=== PATIENT | female | born 1960 | race Caucasian/White ===

== ENCOUNTER 2018-03-16 09:23 | Inpatient (IN) | payer MEDICAID, OTHER ==
[~2018-03-16] VITALS: Ht 167.6 cm; Wt 85.7 kg
[2018-03-16] MEDS ORDERED: ASPirin 81 mg TAB PO ONE (10:00)
[2018-03-16 10:12] LABS: Basophils # (auto) 0.1 uL; Basophils % (auto) 0.8 % (0.0-2.0); Eosinophils # (auto) 0.1 uL; Eosinophils % (auto) 1.1 % (0.0-7.0); Hematocrit 40.9 % (36.0-46.0); Hemoglobin 13.5 g/dL (12.2-16.2); Lymphocytes # (auto) 2.2 uL; Lymphocytes % (auto) 36.4 % (10.0-50.0); Mean Corpuscular Hemoglobin 29.4 pg (28.0-32.0); Mean Corpuscular Volume 89.2 fL (80.0-100.0); Monocytes # (auto) 0.5 uL; Monocytes % (auto) 7.6 % (0.0-12.0); Neutrophils # (auto) 3.3 uL; Neutrophils % (auto) 54.1 % (37.0-80.0); Nucleated Red Blood Cells % 0.1 %; Platelet Count (auto) 249 10^3/uL (140-450); Red Blood Cells 4.59 10^6/uL (4.0-5.20); Red Cell Distribution Width 14.3 % (11.8-14.3); White Blood Cell 6.2 10^3/uL (4.4-10.8)
[2018-03-16 10:23] LABS: BUN/Creatinine Ratio 22.4; Calcium 8.9 mg/dL (8.5-10.1); Potassium 3.6 mmol/L (3.5-5.1)
[2018-03-16 10:32] LABS: Bilirubin, Total 0.4 mg/dL (0.2-1.0); Total Protein 7.9 g/dL (6.4-8.2)
[2018-03-16 10:57] LABS: Urine Bacteria NONE SEEN /hpf (None Seen); Urine Blood TRACE /uL (Negative); Urine WBC <1 /hpf (0 - 5)
[2018-03-16] MEDS ORDERED: TEMAZEPAM 15 MG CAP PO PRN (11:15)
[2018-03-16] MEDS ORDERED: traMADol HCL 50 MG TAB PO PRN (11:15)
[2018-03-16] MEDS ORDERED: MORPHINE SULF INJ 2 MG/ML SYRINGE 1ML IV PRN (11:15)
[2018-03-16] MEDS ORDERED: KETOROLAC TROMETH 30 MG/ML 1ML VIAL IV PRN (11:15)
[2018-03-16] MEDS ORDERED: NITROGLYCERIN 0.4 MG SL TAB SL PRN (11:15)
[2018-03-16] MEDS ORDERED: NITROFURANTOIN (MONO) 100 mg CAP PO ONE (11:15)
[2018-03-16] MEDS: SODIUM CHLORIDE 0.9% 1,000 ML IV SCH (11:35)
[2018-03-16] MEDS ORDERED: LORazepam 2MG/ML-1ML VIAL IV ONE (11:45)
[2018-03-16] MEDS ORDERED: DOXYCYCLINE 100 MG TAB/CAP PO ONE (11:45)
[2018-03-16 12:26] LABS: Alcohol, Urine < 3.0 mg/dL (0-5); Amphetamine Screen, Urine NEGATIVE (NEGATIVE); Barbiturate Scree,Urine NEGATIVE (NEGATIVE); Benzodiazephine Screen, Urine NEGATIVE (NEGATIVE); Cannabinoid Screen, Urine NEGATIVE (NEGATIVE); Cocaine Screen, Urine NEGATIVE (NEGATIVE); Opiate Scree,Urine NEGATIVE (NEGATIVE); Phencyclidine Screen, Urine NEGATIVE (NEGATIVE)
[2018-03-16 18:06] VITALS: BP 151/90
[2018-03-16] MEDS: NITROFURANTOIN (MONO) 100 mg CAP PO SCH (21:36)
[2018-03-16] MEDS: ATORVASTATIN 20 MG TAB PO SCH (21:36)
[2018-03-16] MEDS: DOXYCYCLINE 100 MG TAB/CAP PO SCH (21:36)
[2018-03-16 22:00] VITALS: BP 138/85
[2018-03-17] MEDS: SODIUM CHLORIDE 0.9% 1,000 ML IV SCH ×2 (03:48→21:09)
[2018-03-17 05:00] VITALS: BP 127/86
[2018-03-17 05:55] LABS: Cholesterol 199 mg/dL (< 200); HDL Cholesterol 41 mg/dL (40-59); LDL Cholesterol 142 mg/dL (< 100); Triglycerides 94 mg/dL (< 150)
[2018-03-17 09:00] VITALS: BP 129/87
[2018-03-17] MEDS: NITROGLYCERIN 0.2MG/HR TOPICAL PATCH TD SCH (10:00)
[2018-03-17] MEDS: ENOXAPARIN SOD 40 MG/0.4 ML SYRINGE SC SCH (10:00)
[2018-03-17] MEDS: PANTOPRAZOLE 40 MG TAB PO SCH (10:48)
[2018-03-17] MEDS: ASPirin 81 mg TAB PO SCH (10:48)
[2018-03-17] MEDS: NITROFURANTOIN (MONO) 100 mg CAP PO SCH ×2 (10:48→21:08)
[2018-03-17] MEDS: DOXYCYCLINE 100 MG TAB/CAP PO SCH ×2 (10:48→21:08)
[2018-03-17 13:00] VITALS: BP 151/86
[2018-03-17 17:00] VITALS: BP 144/94
[2018-03-17] MEDS ORDERED: IOHEXOL 350 MG/ML 100ML IJ ONE (18:08)
[2018-03-17] MEDS: ATORVASTATIN 20 MG TAB PO SCH (21:08)
[2018-03-17 22:00] VITALS: BP 146/87
[2018-03-17] MEDS: PROMETHAZINE HCL 25 MG/ML 1ML IV PRN (22:26)
[2018-03-18 05:00] VITALS: BP 124/83
[2018-03-18] MEDS: SODIUM CHLORIDE 0.9% 1,000 ML IV SCH ×2 (05:56→21:40)
[2018-03-18 09:01] VITALS: BP 108/70
[2018-03-18] MEDS: NITROGLYCERIN 0.2MG/HR TOPICAL PATCH TD SCH (10:00)
[2018-03-18] MEDS: ENOXAPARIN SOD 40 MG/0.4 ML SYRINGE SC SCH (10:00)
[2018-03-18] MEDS: DOXYCYCLINE 100 MG TAB/CAP PO SCH ×2 (10:22→21:39)
[2018-03-18] MEDS: ASPirin 81 mg TAB PO SCH (10:22)
[2018-03-18] MEDS: PANTOPRAZOLE 40 MG TAB PO SCH (10:22)
[2018-03-18] MEDS: NITROFURANTOIN (MONO) 100 mg CAP PO SCH ×2 (10:23→21:39)
[2018-03-18 12:57] VITALS: BP 115/76
[2018-03-18] MEDS: ATORVASTATIN 20 MG TAB PO SCH (21:39)
[2018-03-18 22:00] VITALS: BP 117/80
[2018-03-19] MEDS: ACETAMINOPHEN 500 MG TAB PO PRN ×2 (04:17→10:30)
[2018-03-19 05:00] VITALS: BP 128/84
[2018-03-19] MEDS: SODIUM CHLORIDE 0.9% 1,000 ML IV SCH ×2 (07:45→21:38)
[2018-03-19] MEDS ORDERED: ADENOSINE 73 MG in GIVE UN-DILUTED 0 ML IV STA (08:29)
[2018-03-19 09:00] VITALS: BP 121/84
[2018-03-19] MEDS: NITROGLYCERIN 0.2MG/HR TOPICAL PATCH TD SCH (10:00)
[2018-03-19] MEDS: DOXYCYCLINE 100 MG TAB/CAP PO SCH ×2 (10:20→21:36)
[2018-03-19] MEDS: ASPirin 81 mg TAB PO SCH (10:20)
[2018-03-19] MEDS: PANTOPRAZOLE 40 MG TAB PO SCH (10:21)
[2018-03-19] MEDS: ENOXAPARIN SOD 40 MG/0.4 ML SYRINGE SC SCH (10:21)
[2018-03-19] MEDS: NITROFURANTOIN (MONO) 100 mg CAP PO SCH ×2 (10:21→21:36)
[2018-03-19] MEDS: PROMETHAZINE HCL 25 MG/ML 1ML IV PRN (12:30)
[2018-03-19] MEDS ORDERED: methylPREDNISolone SOD SUCC 125 MG/2 ML VL IV ONE (12:30)
[2018-03-19 13:00] VITALS: BP 133/91
[2018-03-19 17:00] VITALS: BP 123/84
[2018-03-19] MEDS: ATORVASTATIN 20 MG TAB PO SCH (21:36)
[2018-03-19 22:00] VITALS: BP 139/86
[2018-03-20 05:00] VITALS: BP 115/83
[2018-03-20 08:25] VITALS: BP 137/85
[2018-03-20] MEDS: SODIUM CHLORIDE 0.9% 1,000 ML IV SCH ×2 (08:28→21:50)
[2018-03-20 09:00] VITALS: BP 128/87
[2018-03-20] MEDS: ENOXAPARIN SOD 40 MG/0.4 ML SYRINGE SC SCH (10:00)
[2018-03-20] MEDS: NITROGLYCERIN 0.2MG/HR TOPICAL PATCH TD SCH (10:00)
[2018-03-20] MEDS: NITROFURANTOIN (MONO) 100 mg CAP PO SCH ×2 (11:20→21:50)
[2018-03-20] MEDS: ASPirin 81 mg TAB PO SCH (11:20)
[2018-03-20] MEDS: DOXYCYCLINE 100 MG TAB/CAP PO SCH ×2 (11:20→21:50)
[2018-03-20] MEDS: methylPREDNISolone SOD SUCC 125 MG/2 ML VL IV SCH (11:21)
[2018-03-20] MEDS: PANTOPRAZOLE 40 MG TAB PO SCH (11:23)
[2018-03-20 13:00] VITALS: BP 148/77
[2018-03-20 16:54] VITALS: BP 127/89
[2018-03-20] MEDS: ATORVASTATIN 20 MG TAB PO SCH (21:50)
[2018-03-20 22:00] VITALS: BP 149/97
[2018-03-21 05:00] VITALS: BP 141/90
[2018-03-21] MEDS: LORazepam 0.5 MG TAB PO PRN ×2 (05:00→12:40)
[2018-03-21 06:27] LABS: Basophils # (auto) 0 uL; Basophils % (auto) 0.1 % (0.0-2.0); Eosinophils # (auto) 0 uL; Hematocrit 39.5 % (36.0-46.0); Lymphocytes # (auto) 1.1 uL; Lymphocytes % (auto) 6.6 % (10.0-50.0); Mean Corpuscular Hemoglobin 29.4 pg (28.0-32.0); Mean Corpuscular Volume 89.3 fL (80.0-100.0); Monocytes # (auto) 0.6 uL; Monocytes % (auto) 3.3 % (0.0-12.0); Platelet Count (auto) 248 10^3/uL (140-450); Red Blood Cells 4.43 10^6/uL (4.0-5.20); Red Cell Distribution Width 14.5 % (11.8-14.3); White Blood Cell 16.7 10^3/uL (4.4-10.8)
[2018-03-21 06:41] LABS: BUN/Creatinine Ratio 18.5; Calcium 8.9 mg/dL (8.5-10.1); Potassium 3.6 mmol/L (3.5-5.1)
[2018-03-21 09:00] VITALS: BP 149/92
[2018-03-21] MEDS: PANTOPRAZOLE 40 MG TAB PO SCH (10:07)
[2018-03-21] MEDS: methylPREDNISolone SOD SUCC 125 MG/2 ML VL IV SCH (10:07)
[2018-03-21] MEDS: ASPirin 81 mg TAB PO SCH (10:08)
[2018-03-21] MEDS: DOXYCYCLINE 100 MG TAB/CAP PO SCH ×2 (10:08→21:36)
[2018-03-21] MEDS: NITROFURANTOIN (MONO) 100 mg CAP PO SCH ×2 (10:08→21:36)
[2018-03-21] MEDS: NITROGLYCERIN 0.2MG/HR TOPICAL PATCH TD SCH (10:15)
[2018-03-21] MEDS: PROMETHAZINE HCL 25 MG/ML 1ML IV PRN (12:40)
[2018-03-21 13:00] VITALS: BP 159/91
[2018-03-21] MEDS ORDERED: IODIXANOL 320MG/ML 100ML BTL IV ONE (13:56)
[2018-03-21] MEDS ORDERED: LIDOCAINE 2%HCL (LOCAL ANESTH.) INJ 10ml MDV ONE (13:56)
[2018-03-21] MEDS ORDERED: ANGIOMAX 250 MG VIAL IV ONE ×2 (14:01→14:41)
[2018-03-21] MEDS ORDERED: SODIUM CHL 0.9% 50 ML ONE ×2 (14:02→14:41)
[2018-03-21] MEDS ORDERED: fentaNYL CITRATE 100 MCG/2 ML VL ONE (14:02)
[2018-03-21] MEDS ORDERED: MIDAZOLAM HCL 1MG/1ML-2 ML VIAL ONE (14:02)
[2018-03-21] MEDS: SODIUM CHLORIDE 0.9% 1,000 ML IV SCH (14:46)
[2018-03-21 16:51] VITALS: BP 125/74
[2018-03-21] MEDS: ATORVASTATIN 20 MG TAB PO SCH (21:36)
[2018-03-21 22:12] VITALS: BP 140/88
[2018-03-22] MEDS: SODIUM CHLORIDE 0.9% 1,000 ML IV SCH ×2 (00:36→14:00)
[2018-03-22 05:30] VITALS: BP 129/77
[2018-03-22] MEDS: ACETAMINOPHEN 500 MG TAB PO PRN (05:44)
[2018-03-22 06:56] LABS: Basophils # (auto) 0 uL; Eosinophils # (auto) 0 uL; Hematocrit 38.8 % (36.0-46.0); Lymphocytes # (auto) 1.6 uL; Lymphocytes % (auto) 10.9 % (10.0-50.0); Mean Corpuscular Hemoglobin 29.9 pg (28.0-32.0); Mean Corpuscular Hgb Conc. 33.4 g/dL (32.0-36.0); Mean Corpuscular Volume 89.5 fL (80.0-100.0); Monocytes # (auto) 0.6 uL; Monocytes % (auto) 4.1 % (0.0-12.0); Neutrophils # (auto) 12.2 uL; Nucleated Red Blood Cells % 0.1 %; Platelet Count (auto) 242 10^3/uL (140-450); Red Blood Cells 4.34 10^6/uL (4.0-5.20); Red Cell Distribution Width 14.5 % (11.8-14.3); White Blood Cell 14.4 10^3/uL (4.4-10.8)
[2018-03-22 07:37] LABS: Albumin 3.5 g/dL (3.4-5.0); Calcium 8.8 mg/dL (8.5-10.1); Potassium 3.8 mmol/L (3.5-5.1)
[2018-03-22 07:39] LABS: Bilirubin, Total 0.3 mg/dL (0.2-1.0); Total Protein 7.1 g/dL (6.4-8.2)
[2018-03-22 09:00] VITALS: BP 129/85
[2018-03-22] MEDS: ASPirin 81 mg TAB PO SCH (09:50)
[2018-03-22] MEDS: methylPREDNISolone SOD SUCC 125 MG/2 ML VL IV SCH (09:50)
[2018-03-22] MEDS: DOXYCYCLINE 100 MG TAB/CAP PO SCH (09:51)
[2018-03-22] MEDS: PANTOPRAZOLE 40 MG TAB PO SCH (09:51)
[2018-03-22] MEDS: NITROFURANTOIN (MONO) 100 mg CAP PO SCH (09:51)
[2018-03-22] MEDS: NITROGLYCERIN 0.2MG/HR TOPICAL PATCH TD SCH (09:51)
[2018-03-22] MEDS ORDERED: ENOXAPARIN SOD 40 MG/0.4 ML SYRINGE SC SCH (10:00)
[2018-03-22 11:59] VITALS: BP 129/85
== END 2018-03-22 13:20 | disposition home or self-care (01) | DRG 287 ==
LOC: ER 09:23 → TELE 09:24 → TELE-WESTW 17:50
PROVIDERS: ADMIT Internal Medicine; ATTEND Family Medicine
PROC: 4A023N7 Measurement of Cardiac Sampling and Pressure, Left Heart, Percutaneous Approach (ICD-10-PCS; principal; 2018-03-21)
PROC: B2111ZZ Fluoroscopy of Multiple Coronary Arteries using Low Osmolar Contrast (ICD-10-PCS; 2018-03-21)
PROC: B2151ZZ Fluoroscopy of Left Heart using Low Osmolar Contrast (ICD-10-PCS; 2018-03-21)
DX: R07.89 Other chest pain (principal); I24.9 Acute ischemic heart disease, unspecified; N39.0 Urinary tract infection, site not specified; I10 Essential (primary) hypertension; E78.00 Pure hypercholesterolemia, unspecified; J20.9 Acute bronchitis, unspecified; M48.02 Spinal stenosis, cervical region; I77.810 Thoracic aortic ectasia; R59.0 Localized enlarged lymph nodes; G43.909 Migraine, unspecified, not intractable, without status migrainosus; M54.12 Radiculopathy, cervical region; Z80.0 Family history of malignant neoplasm of digestive organs; Z82.49 Family history of ischemic heart disease and other diseases of the circulatory system; Z90.710 Acquired absence of both cervix and uterus; Z88.1 Allergy status to other antibiotic agents; Z88.0 Allergy status to penicillin
CPT/HCPCS: 36415; 70450; 70551; 71046; 71275; 72141; 78452; 80048; 80053; 80061; 80307; 81001; 82550; 84443; 84484; 85025; 85379; 85652; 86141; 86850; 86900; 86901; 87086; 93005; 93017; 93306; 93458; 94761; 99152; A6257; J0153; J1885; J2001; J2250; Q9967

== ENCOUNTER → 2018-04-11 | Outpatient (CLI) | payer MEDICAID ==
[2018-04-11 11:25] LABS: Albumin 3.7 g/dL (3.4-5.0); Bilirubin, Direct 0.1 mg/dL (0-0.2); Bilirubin, Total 0.8 mg/dL (0.2-1.0); Total Protein 7.2 g/dL (6.4-8.2)
== END | disposition home or self-care (01) ==
LOC: LAB 10:32
PROVIDERS: ATTEND Internal Medicine
DX: E78.5 Hyperlipidemia, unspecified (principal); Z88.0 Allergy status to penicillin
CPT/HCPCS: 36415; 80076

== ENCOUNTER → 2018-04-19 | Outpatient (CLI) | payer MEDICAID | END | disposition home or self-care (01) | LOC: Rad HDHVI 11:24 | PROVIDERS: ATTEND Internal Medicine | DX: M54.5 Low back pain (principal); Z90.710 Acquired absence of both cervix and uterus; Z88.0 Allergy status to penicillin; Z88.8 Allergy status to other drugs, medicaments and biological substances; Z79.899 Other long term (current) drug therapy | CPT/HCPCS: 72100 ==

== ENCOUNTER → 2019-01-11 | Outpatient (CLI) | payer MEDICAID ==
[~2019-01-11] MED LIST: IOHEXOL 350 MG/ML 100ML IJ ONE
--- NOTE | 2019-01-11 10:34 | NUR ---
PT. TO CLINIC FOR CTA OF AORTA PER MD ORDER. AOX3, PWD. ORDERS RECEIVED AND CARRIED OUT.
[2019-01-11 10:40] VITALS: BP 113/81
--- NOTE | 2019-01-11 10:40 | NUR ---
IV insertion IV access obtained, via clean sterile technique by inserting 18 gauge catheter at after attempt(s). IV secured properly. No trauma to site. Patient tolerated procedure well. STAT LABS SENT.
--- NOTE | 2019-01-11 11:50 | NUR ---
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 Saran flushed , site benign. DC'd stable.
--- NOTE | 2019-01-11 12:40 | NUR ---
PT. RTC FOR CTA WITH [facility]. HL FLUSHED. LABS WNL. TECH ADVISED. DELAY IN TX D/T LABS AND TECH AVAILABILITY. REASURRANCE GIVEN TO PT.
--- NOTE | 2019-01-11 13:15 | NUR ---
PT. TO AND FROM CT, TOLERATED PROCEDURE WELL, WITH NO C/O.
[2019-01-11 13:30] VITALS: BP 118/76
--- NOTE | 2019-01-11 13:30 | NUR ---
IV removal IV DC'd with sterile technique, catheter fully intact. Pressure dressing applied to site. Patient tolerated procedure well. Discharged with aftercare instructions per MD. NOTE: PT. GIVEN WRITTEN INSTRUCTIONS TO HOLD METFORMIN FOR NEXT 24 HRS, AND INCREASE FLUID INTAKE FOR NEXT 24 HRS.
== END | disposition home or self-care (01) ==
LOC: Rad HDHVI 10:04
PROVIDERS: ATTEND Internal Medicine
DX: I71.4 Abdominal aortic aneurysm, without rupture (principal); E11.9 Type 2 diabetes mellitus without complications; R94.4 Abnormal results of kidney function studies; I70.0 Atherosclerosis of aorta; J98.11 Atelectasis; K44.9 Diaphragmatic hernia without obstruction or gangrene; K42.9 Umbilical hernia without obstruction or gangrene; Z90.710 Acquired absence of both cervix and uterus
CPT/HCPCS: 36415; 74175; 82565; G0463; Q9967

== ENCOUNTER → 2019-01-21 | Outpatient (CLI) | payer MEDICAID ==
[2019-01-21 09:00] VITALS: BP 107/75
--- NOTE | 2019-01-21 09:00 | NUR ---
CHF/CT PT ARRIVED AT THE [facility] FOR CT OF THE CHEST IV STARTED CURRENT CREA 0.86
[2019-01-21 09:44] VITALS: BP 111/76
== END | disposition home or self-care (01) ==
LOC: Rad HDHVI 08:49
PROVIDERS: ATTEND Internal Medicine
DX: K44.9 Diaphragmatic hernia without obstruction or gangrene (principal); R94.4 Abnormal results of kidney function studies; R22.1 Localized swelling, mass and lump, neck; I77.819 Aortic ectasia, unspecified site
CPT/HCPCS: 36415; 71250; 71275; 82565; G0463; Q9967

== ENCOUNTER → 2019-10-11 | Outpatient (CLI) | payer MEDICAID | END | disposition home or self-care (01) | LOC: Rad HDHVI 13:40 | PROVIDERS: ATTEND Internal Medicine | DX: I08.8 Other rheumatic multiple valve diseases (principal); I10 Essential (primary) hypertension; I77.810 Thoracic aortic ectasia | CPT/HCPCS: 93306 ==

== ENCOUNTER → 2019-10-21 | Outpatient (CLI) | payer MEDICAID ==
[~2019-10-21] VITALS: Ht 167.6 cm; Wt 88.5 kg
== END | disposition home or self-care (01) ==
LOC: Rad HDHVI 09:05
PROVIDERS: ATTEND Internal Medicine
DX: I10 Essential (primary) hypertension (principal); R07.9 Chest pain, unspecified; E78.00 Pure hypercholesterolemia, unspecified; E11.9 Type 2 diabetes mellitus without complications; Z82.49 Family history of ischemic heart disease and other diseases of the circulatory system
CPT/HCPCS: 78452; 93017; 96374; A9500

== ENCOUNTER → 2021-07-21 | Day surgery (SDC) | payer MEDICAID ==
[2021-07-19 12:12] LABS: Basophils # (auto) 0 10 ^3/uL (0-0.2); Basophils % (auto) 0.4 % (0.0-2.0); Eosinophils # (auto) 0.1 10 ^3/uL (0-0.8); Eosinophils % (auto) 1.5 % (0.0-7.0); Hematocrit 37.9 % (36.0-46.0); Hemoglobin 12.9 g/dL (12.2-16.2); Lymphocytes # (auto) 2.2 10 ^3/uL (0.4-5.4); Lymphocytes % (auto) 27.3 % (10.0-50.0); Mean Corpuscular Hemoglobin 30.1 pg (28.0-32.0); Mean Corpuscular Volume 88.3 fL (80.0-100.0); Monocytes # (auto) 0.6 10 ^3/uL (0-1.3); Neutrophils % (auto) 62.8 % (37.0-80.0); Red Blood Cells 4.29 10^6/uL (4.0-5.20); Red Cell Distribution Width 15.2 % (11.8-14.3)
[2021-07-19 12:25] LABS: Urine Bacteria NONE SEEN /hpf (None Seen); Urine Blood Negative /uL (Negative); Urine Specific Gravity 1.007 (1.001-1.035); Urine WBC <1 /hpf (0 - 5)
[2021-07-19 12:30] LABS: Albumin 3.7 g/dL (3.4-5.0); Calcium 8.8 mg/dL (8.5-10.1); Potassium 3.8 mmol/L (3.5-5.1)
[2021-07-19 12:33] LABS: BUN/Creatinine Ratio 12.5; Bilirubin, Total 0.6 mg/dL (0.2-1.0); Total Protein 7.4 g/dL (6.4-8.2)
[~2021-07-21] MED LIST changes: +AMLO-489 PO; +ASPI-498 PO; +ATOR20TA50 PO; +BENZ100C97 PO; +BUPIVACAINE 0.5% P/F INJ 10 ML VIAL ONE; +BUPIVACAINE W/ EPINEPH 0.5% MPF 30ML VIAL IJ ONE; +DexAMETHasone SOD PHOS 10MG/1ML VIAL INJ ONE; +GELATIN 1 SPONGE SIZE 100 TOP ONE; +GELATIN 1 SPONGE SIZE 50 TOP ONE; +HYDR25TA4 PO; +HYDROmorphone HCL 2 MG/ML VL ONE; -IOHEXOL 350 MG/ML 100ML IJ ONE; +LABETALOL HCL 5 MG/ML 4ML SYRINGE IV PRN; +LIDOCAINE 2% JELLY 11ml (GLYDO) ONE; +MET50T GT; +METF-370 PO; +MIDAZOLAM HCL 2MG/2ML 2ml VIAL (1mg/ml) IV PRN; +MIDAZOLAM HCL 2MG/2ML 2ml VIAL (1mg/ml) ONE; +MONT-8 OR; +MORPHINE SULFATE 4 MG/ML SYR/VIAL IV PRN; +ONDANSETRON HCL 4 MG/2 ML VIAL IV PRN; +PANT1INJ3 PO; +POVIDONE IODINE 10 % TOPICAL OINT 30GM TOP ONE; +PROPOFOL 10 MG/ML 20 ML IV ONE; +ePHEDrine SULFATE 50 MG/ML AMP IV PRN; +fentaNYL CITRATE 100 MCG/2 ML VL ONE; +hydrALAZINE HCL 20 MG/ML VL IV PRN; +levoFLOXacin 500MG 100 ML IV ONE
[2021-07-21] MEDS: HYDROmorphone HCL 2 MG/ML VL IV PRN ×3 (11:03→17:00)
[2021-07-21 17:15] VITALS: BP 105/61
== END | disposition home or self-care (01) ==
LOC: SUR 06:09
PROVIDERS: ATTEND Surgery
DX: K64.4 Residual hemorrhoidal skin tags (principal); K64.8 Other hemorrhoids; I10 Essential (primary) hypertension; E11.9 Type 2 diabetes mellitus without complications; K21.9 Gastro-esophageal reflux disease without esophagitis; E78.5 Hyperlipidemia, unspecified; M19.90 Unspecified osteoarthritis, unspecified site; Z98.891 History of uterine scar from previous surgery; Z98.890 Other specified postprocedural states; Z79.899 Other long term (current) drug therapy; Z88.0 Allergy status to penicillin; Z88.1 Allergy status to other antibiotic agents; Z20.822 Contact with and (suspected) exposure to COVID-19
CPT/HCPCS: 36415; 46260; 80053; 81001; 82962; 85025; J1100; J1170; J1956; J2250; J2405; J2704; J3010; J3490; U0003